=== PATIENT | male | born 1960 | race African-American/Black ===

== ENCOUNTER 2017-10-17 23:44 | Emergency (ER) | payer OTHER ==
[~2017-10-17] VITALS: Ht 170.2 cm; Wt 46.7 kg
[~2017-10-17 23:44] MED LIST: ASPIRIN EC325 MG PO; LYRICA100 M1 PO; PERCOCET 5-3251 EACH PO; PREDNISONE20 MG PO; ULTRAM(MONOGRAP50 MG PO; VICODIN 500 MG-1 TAB PO; VIGAMOX 0.60 GTT/1 B OS
--- NOTE | 2017-10-18 00:30 | ED UPPER/LOWER EXTREMITY COMPL ---
See Addendum History of Present Illness General Chief Complaint: General Adult Stated Complaint: ? FX L SHOULDER/ELBOW 3 DAYS AGO S/P FALL Source: patient Exam Limitations: no limitations Vital Signs & Intake/Output Vital Signs & Intake/Output Vital Signs Date Time Temp Pulse Resp B/P B/P Pulse O2 O2 Flow FiO2 Mean Ox Delivery Rate 10/18 0123 98.2 86 16 122/82 99 10/18 0014 98.6 90 16 126/87 99 Room Air Room Air Allergies Coded Allergies: Penicillins (Intermediate, HIVES 09/11/17) amoxicillin (Intermediate, HIVES 09/11/17) Reconcile Medications Ibuprofen 600 MG TABLET 1 TAB PO TID PRN pain with food Oxycodone HCl/Acetaminophen (Percocet 5-325 MG Tablet) 5 MG-325 MG TABLET 1-2 TAB PO Q6P PRN PAIN Pregabalin (Lyrica) 100 MG CAPSULE 1 CAP PO BID NEUROPATHY Tylenol With Codeine (Tylenol With Codeine #3 Tablet) 300 MG-30 MG TABLET 1 TAB PO TID PRN pain eight... [id number] Triage Note: 57YO MALE TO TRIAGE W/CO PAIN SWELLING TO L ELBOW SP FALL ON FRIDAY. Triage Nurses Notes Reviewed? yes Onset: Abrupt Duration: day(s): Timing: recent history Severity: mild Pain/Injury Location: Left: Shoulder, Elbow. Method of Injury: fall Modifying Factors: Improves With: rest. Worsens With: movement. Associated Symptoms: swelling HPI: 57 YO gentleman presents with left elbow and left shoulder pain after a fall. He shares that he was doing yard work and fell backwards. He landed on his left elbow. He did not hit his head, lose consciousness, or suffer other injuries. He had no syncope, chest pain, shortness of breath. He is otherwise well. Past History Travel History Traveled to [place] past 21 day No Medical History Any Pertinent Medical History? see below for history Neurological: NEUROPATHY EENT: NONE Cardiovascular: NONE Respiratory: NONE Gastrointestinal: NONE Hepatic: NONE Renal: NONE Musculoskeletal: R FOOT FROSTBITE Psychiatric: alcohol dependence Endocrine: NONE Blood Disorders: NONE Cancer(s): NONE Surgical History Surgical History: non-contributory Psychosocial History What is your primary language Nepali Tobacco Use: Current Daily Use Daily Tobacco Use Amount/Type: => 5 Cigarettes daily Family History Hx Contributory? No Review of Systems Review of Systems Constitutional: Reports: no symptoms. EENTM: Reports: no symptoms. Respiratory: Reports: no symptoms. Cardiovascular: Reports: no symptoms. Gastrointestinal/Abdominal: Reports: no symptoms. Genitourinary: Reports: no symptoms. Musculoskeletal: Reports: no symptoms. Skin: Reports: no symptoms. Neurological/Psychological: Reports: no symptoms. Hematologic/Endocrine: Reports: no symptoms. Immunological: Reports: no symptoms. All Other Systems: Reviewed and Negative Physical Exam Physical Exam General Appearance: well developed/nourished, mild distress Head: atraumatic Eyes: Bilateral: normal appearance. Ears, Nose, Throat: normal pharynx, normal ENT inspection Neck: normal inspection, supple, full range of motion Cardiovascular/Respiratory: normal breath sounds Gastrointestinal: organmegaly Shoulder Left: diffuse muscle girdle tenderness to palpation, ROM normal Elbow Left: diffuse tenderness around left elbow, ROM is normal, mild swelling noted. left wrist/hand is WNL Progress Differential Diagnosis: contusion, fracture, sprain, tendon injury Plan of Care: Orders Procedure Date/time Status XRY-SHOULDER COMPLETE-LEFT 10/17 2349 Active XRY-ELBOW 3 OR MORE VIEWS, L 10/17 2349 Active Diagnostic Imaging: Viewed by Me: Radiology Read. Discussed w/RAD: Radiology Read. Radiology Impression: PATIENT: MARLYN SUGGS PRESENT AGE: 57 PATIENT ACCOUNT NO: [id number] : 62 LOCATION: [facility] ORDERING PHYSICIAN: Kelton Barone MD SERVICE DATE: 10/17/17 EXAM TYPE: RAD - XRY-SHOULDER COMPLETE-LEFT EXAMINATION: SHOULDER 3 VIEWS, LEFT CLINICAL INFORMATION: Left shoulder pain. COMPARISON: None. TECHNIQUE: AP views of the left shoulder were obtained in internal and external rotation. In addition, a Y view was obtained. FINDINGS: There are no fractures or dislocations. The humeral head is seated within a well-formed glenoid. The AC joint is intact. IMPRESSION: Unremarkable left shoulder radiographs. DICTATED BY: Ty Desir MD DATE/TIME DICTATED:10/18/17100 INSTALLER SOFT TOP:SIRIA DATE/TIME TRANSCRIBED:100 CONFIDENTIAL, DO NOT COPY WITHOUT APPROPRIATE AUTHORIZATION. < Electronically signed in Other Vendor System> SIGNED BY: Ty Desir MD 10/18/175 Departure Departure Disposition: HOME OR SELF CARE Condition: Stable Clinical Impression Primary Impression: Contusion Referrals: Yamilet Mercedes APRN (PCP/Family) Departure Forms: Customer Survey General Discharge Information Prescriptions: Current Visit Scripts Ibuprofen 1 TAB PO TID PRN pain #30 TAB with food Tylenol With Codeine (Tylenol With Codeine #3 Tablet) 1 TAB PO TID PRN pain #8 TAB eight... [id number] Comments 10/18/17, 1:20am... xrays negative... discussed with patient at length... sent rx for ibuprofen and t#3... close follow up advised.
--- NOTE | 2017-10-18 01:04 | RADIOLOGY REPORT ---
EXAMINATION: ELBOW 3 VIEWS, RIGHT CLINICAL INFORMATION: Right elbow pain. COMPARISON: None. TECHNIQUE: AP, lateral, oblique views of the right elbow are provided. FINDINGS: There are no fractures or dislocations. There is no elbow joint effusion. IMPRESSION: Unremarkable right elbow radiographs.
--- NOTE | 2017-10-18 01:05 | RADIOLOGY REPORT ---
EXAMINATION: SHOULDER 3 VIEWS, LEFT CLINICAL INFORMATION: Left shoulder pain. COMPARISON: None. TECHNIQUE: AP views of the left shoulder were obtained in internal and external rotation. In addition, a Y view was obtained. FINDINGS: There are no fractures or dislocations. The humeral head is seated within a well-formed glenoid. The AC joint is intact. IMPRESSION: Unremarkable left shoulder radiographs.
[2017-10-18] MEDS ORDERED: IBUPROFEN600 M1 PO (01:13)
[2017-10-18] MEDS ORDERED: TYLENOL WITH C1 EACH PO (01:13)
[2017-10-18 01:23] VITALS: BP 122/82
== END 2017-10-18 01:24 ==
LOC: ERH 23:44
DX: T14.8XXA Other injury of unspecified body region, initial encounter (principal); M25.512 Pain in left shoulder; M25.522 Pain in left elbow; W19.XXXA Unspecified fall, initial encounter; Y93.H9 Activity, other involving exterior property and land maintenance, building and construction
CPT/HCPCS: 73030-LT; 73080-LT

== ENCOUNTER 2017-11-05 20:49 | Emergency (ER) | payer OTHER ==
[~2017-11-05 20:49] MED LIST changes: +IBUPROFEN600 M1 PO; +TYLENOL WITH C1 EACH PO
--- NOTE | 2017-11-06 00:46 | ED PSYCHIATRIC COMPLAINT ---
History of Present Illness General Chief Complaint: ETOH/Drug Related Complaint Stated Complaint: BIBA FOR EVAL ETOH Source: patient, old records, EMS Exam Limitations: clinical condition Vital Signs & Intake/Output Vital Signs & Intake/Output Vital Signs Date Time Temp Pulse Resp B/P B/P Pulse O2 O2 Flow FiO2 Mean Ox Delivery Rate 11/05 2140 97.6 72 20 124/87 100 Room Air ED Intake and Output 11/06 0000 11/05 1200 Intake Total 0 Output Total Balance 0 Intake, Oral 0 Allergies Coded Allergies: Penicillins (Intermediate, HIVES 09/11/17) amoxicillin (Intermediate, HIVES 09/11/17) Reconcile Medications Ibuprofen 600 MG TABLET 1 TAB PO TID PRN pain with food Oxycodone HCl/Acetaminophen (Percocet 5-325 MG Tablet) 5 MG-325 MG TABLET 1-2 TAB PO Q6P PRN PAIN Pregabalin (Lyrica) 100 MG CAPSULE 1 CAP PO BID NEUROPATHY Tylenol With Codeine (Tylenol With Codeine #3 Tablet) 300 MG-30 MG TABLET 1 TAB PO TID PRN pain eight... [id number] Triage Note: PT BIBA S/P NEIGHBOR CALLED PD FOR CUASING DISTURBANCE IN THE STREET DUE TO ETOH INTOXICATION. PT ALSO HAD A WITNESSED FALL BUT DID NOT HIT HEAD. PT DENIES DRUG USE. SECURITY AT BEDSIDE FOR WANDING AND CHANGING Triage Nurses Notes Reviewed? yes Onset: Just prior to arrival Duration: minute(s):, constant, continues in ED Timing: recent history Severity: moderate, severe Associated Symptoms: anxiety, impaired concentration HPI: Prior to arrival patient was in the street arguing with his neighbor and intoxicated. He denies fever chills nausea vomiting diarrhea abdominal pain chest pain shortness breath headache dysuria rash bleeding suicidal ideation homicidal ideation hallucination. Past History Travel History Traveled to [place] past 21 day No Medical History Any Pertinent Medical History? see below for history Neurological: NEUROPATHY EENT: NONE Cardiovascular: NONE Respiratory: NONE Gastrointestinal: NONE Hepatic: NONE Renal: NONE Musculoskeletal: R FOOT FROSTBITE Psychiatric: alcohol dependence Endocrine: NONE Blood Disorders: NONE Cancer(s): NONE Isolation History: Standard Surgical History Surgical History: non-contributory Psychosocial History What is your primary language Gibraltarian Tobacco Use: Current Daily Use Daily Tobacco Use Amount/Type: => 5 Cigarettes daily Family History Hx Contributory? No Review of Systems Review of Systems Constitutional: Reports: no symptoms. EENTM: Reports: no symptoms. Respiratory: Reports: no symptoms. Cardiovascular: Reports: no symptoms. GI: Reports: no symptoms. Genitourinary: Reports: no symptoms. Musculoskeletal: Reports: no symptoms. Skin: Reports: no symptoms. Neurological/Psychological: Reports: see HPI, anxiety, confusion. Hematologic/Endocrine: Reports: no symptoms. Immunologic/Allergic: Reports: no symptoms. All Other Systems: Reviewed and Negative Physical Exam Physical Exam General Appearance: well developed/nourished, alert, awake, anxious, mild distress Head: atraumatic, normal appearance Eyes: Bilateral: PERRL, EOMI. Ears, Nose, Throat: normal pharynx, normal ENT inspection, hearing grossly normal Neck: normal inspection, supple Respiratory: normal breath sounds Cardiovascular: regular rate/rhythm Gastrointestinal: soft, non-tender Extremities: normal range of motion Neurological/Psychiatric: no motor/sensory deficits, awake, agitated, alert, anxious, trapeze artist II-XII nml as tested Appearance/Memory/Insight: disheveled, impaired insight Behavoir/Eye Contact/Speech: belligerent, uncooperative, compulsive Thoughts/Hallucinations: no apparent hallucination Skin: intact, normal color, warm/dry SAD PERSONS Done? patient not suicidal Progress Differential Diagnosis: drug intoxication, drug overdose, drug withdrawal, hypoglycemia Plan of Care: Orders Procedure Date/time Status Regular Diet 11/06 B Active Patient Safety Monitor 11/06 0510 Active Restraint- Discontinue 11/06 0400 Active Restraint- Behavioral (Order) 11/06 0113 Active Continuous Observation Monitor 11/06 0113 Active Patient Safety Monitor 11/05 2100 Active Comments: Physical and chemical restraints required for patient agitation and staff safety. Departure Departure Disposition: HOME OR SELF CARE Condition: Stable Clinical Impression Primary Impression: Alcohol intoxication delirium Referrals: Yamilet Mercedes APRN (PCP/Family) Departure Forms: General Discharge Information
[2017-11-06 06:38] VITALS: BP 105/76
== END 2017-11-06 07:19 ==
LOC: ERH 20:49
DX: F10.121 Alcohol abuse with intoxication delirium (principal); F17.210 Nicotine dependence, cigarettes, uncomplicated; G62.9 Polyneuropathy, unspecified
CPT/HCPCS: 96372; J1200; J1630